=== PATIENT | male | born 1965 | race Caucasian/White ===

== ENCOUNTER 2023-07-26 05:53 | Day surgery (SDC) | payer OTHER, SELFPAY ==
[2023-07-17 08:16] VITALS: BMI 34.6
[2023-07-26] VITALS (11 sets, daily range): BP systolic 100–135; BP diastolic 66–86; BMI 34.6
[2023-07-26 06:22] LABS: Glucose - Point of Care 122 mg/dl (70-99)
[2023-07-26] MEDS: CELEBREX 200 MG PO (06:26)
[2023-07-26] MEDS: TYLENOL 1000 MG PO (06:26)
[2023-07-26] MEDS: NORMOSOL-R 1000 IV (06:27)
[2023-07-26 08:46] LABS: Glucose - Point of Care 145 mg/dl (70-99)
== END 2023-07-26 10:13 | disposition home or self-care (01) ==
LOC: SDS 05:53
PROVIDERS: ATTENDING PHYSICIAN Specialist; FAMILY PHYSICIAN Physician Assistant Medical
DX: S46.012A Strain of muscle(s) and tendon(s) of the rotator cuff of left shoulder, initial encounter (principal); S43.492A Other sprain of left shoulder joint, initial encounter; X58.XXXA Exposure to other specified factors, initial encounter; M25.819 Other specified joint disorders, unspecified shoulder; M94.212 Chondromalacia, left shoulder
CPT/HCPCS: 29828; 29826; 29824; 36415; 82962; 93005; C1713